=== PATIENT | male | born 1950 | race Caucasian/White ===

== ENCOUNTER → 2019-02-08 | Outpatient (CLI) | payer OTHER | END | disposition home or self-care (01) | LOC: RAH 11:01 | PROVIDERS: ATTEND Internal Medicine Cardiovascular Disease | DX: Z13.6 Encounter for screening for cardiovascular disorders (principal) | CPT/HCPCS: 75571 ==

== ENCOUNTER 2019-02-27 07:12 | Day surgery (SDC) | payer OTHER ==
[2019-02-25 15:17] LABS: BASOPHILS % (AUTO) 1.1 % (0.0-5.0); EOSINOPHILS % (AUTO) 3.7 % (0.0-8.0); HEMATOCRIT 40.2 % (42-54); LYMPHOCYTES % (AUTO) 30.2 % (21.0-51.0); MEAN CORPUSCULAR HEMOGLOBIN 29.7 pg (27.0-33.0); MEAN CORPUSCULAR HGB CONC 33.8 g/dL (32.0-36.0); MONOCYTES % (AUTO) 7.3 % (3.0-13.0); NEUTROPHILS % (AUTO) 57.7 % (40.0-77.0); PLATELET COUNT (AUTO) 228 K/uL (130-400); RED BLOOD CELL COUNT(AUTO) 4.57 MIL/uL (4.50-6.20); RED CELL DISTRIBUTION WIDTH 13.6 % (11.0-15.5); WHITE BLOOD COUNT (AUTO) 8.5 K/uL (4.8-10.8)
[2019-02-25 15:23] LABS: APPEARANCE,URINE Clear (CLEAR); BILIRUBIN,URINE Negative (NEGATIVE); COLOR,URINE Yellow (YELLOW); GLUCOSE, URINE (UA) Negative (NEGATIVE); KETONES,URINE Negative (NEGATIVE); LEUKOCYTE ESTERASE ,URINE Negative (NEGATIVE); NITRATE,URINE Negative (NEGATIVE); OCCULT BLOOD,URINE Negative (NEGATIVE); PH,URINE 6.5 (5.0-8.0); PROTEIN,URINE Negative (NEGATIVE)
[2019-02-25 15:24] LABS: CREATININE 0.9 mg/dL (0.5-1.5); POTASSIUM 4.3 mmol/L (3.5-5.1)
[2019-02-25 15:28] LABS: PARTIAL THROMBOPLASTIN TIME 28.3 SEC (26.3-35.5); PROTHROMBIN TIME 10.5 SEC (9.6-11.6)
[2019-02-25 15:31] VITALS: BP 125/63
[2019-02-27] VITALS (12 sets, daily range): BP systolic 114–176; BP diastolic 46–80
[~2019-02-27] VITALS: Ht 182.9 cm; Wt 110.9 kg
[~2019-02-27 07:12] MED LIST: ASPI-555 PO; ATOR10TA69 PO; LISI-613 PO; METF-446 PO; PANT40TA25 PO
[2019-02-27] MEDS ORDERED: SODIUM CHLORIDE 0.9% 1000ML 1,000 ML IV SCH (08:00)
[2019-02-27] MEDS ORDERED: IOHEXOL-350 75 ML VIAL IV ONE (11:06)
[2019-02-27] MEDS ORDERED: IOHEXOL-350 50ML VIAL IV ONE (11:06)
[2019-02-27] MEDS ORDERED: HEPARIN SODIUM 1000UNIT/ML 10ML VIAL ONE (11:06)
[2019-02-27] MEDS ORDERED: LIDOCAINE HCL 2% 20ML ONE (11:07)
[2019-02-27] MEDS ORDERED: GLUCAGON 1MG KIT 1 MG ML IM PRN (12:00)
[2019-02-27] MEDS ORDERED: DEXTROSE 50%-WATER 50 ML DISP.SYRIN IV PRN (12:00)
[2019-02-27] MEDS ORDERED: INSULIN HUMULIN R 100 UNIT/ML 3ML SQ SCH (16:30)
--- NOTE | 2019-02-27 17:09 | NUR ---
PT. TSF TO RM 204 REPORT GIVEN TO ADALBERTO BORJAS RN. RT. GROIN IS SOFT, NO BLEEDING, NO HEMATOMA, NO PAIN TO SITE. PULSES TO BILATERAL DORSALIS PEDAL.
[2019-02-27] MEDS ORDERED: ACETAMINOPHEN 325 MG TAB PO PRN (17:30)
[2019-02-27] MEDS ORDERED: ACETAMINOPHEN 325 MG TAB ONE (17:34)
--- NOTE | 2019-02-27 20:29 | NUR ---
PATIENT STABLE, GOOD, ALERT 3X, AMBULATORY, NO BLEEDING TO RIGHT GROIN SITE AFTER AMBULATION AND BEDREST. PT TEACHING AND DISCHARGE INSTRUCTIONS PROVIDED TO PATIENT REGARDING PROCEDURE AND BLEEDING PRECAUTIONS. PATIENT LEAVING WITH SPOUSE, PATIENT UNDERSTANDS INSTRUCTIONS.
== END 2019-02-27 20:29 | disposition home or self-care (01) ==
LOC: DAH 07:12
PROVIDERS: ATTEND Internal Medicine Cardiovascular Disease
DX: I25.118 Atherosclerotic heart disease of native coronary artery with other forms of angina pectoris (principal); R94.39 Abnormal result of other cardiovascular function study; I11.9 Hypertensive heart disease without heart failure; E11.9 Type 2 diabetes mellitus without complications; E78.5 Hyperlipidemia, unspecified; F17.210 Nicotine dependence, cigarettes, uncomplicated; Z79.82 Long term (current) use of aspirin; Z79.899 Other long term (current) drug therapy; Z79.01 Long term (current) use of anticoagulants; Z72.89 Other problems related to lifestyle; Z82.49 Family history of ischemic heart disease and other diseases of the circulatory system; Z83.3 Family history of diabetes mellitus
CPT/HCPCS: 36415; 71045; 80048; 81003; 82948 ×2; 85025; 85610; 85730; 93005; 93458; A4216; A4221; A4222; A4223 ×2; A4606; A4663; C1894; J1644; J3490; J7030; Q9967 ×2